=== PATIENT | female | born 1995 | race Caucasian/White ===

== ENCOUNTER → 2021-11-20 | Outpatient (CLI) | payer MEDICAID, SELFPAY ==
[2021-11-22 16:24] LABS: HPV Reflexed? NOT INDICATED
== END | disposition home or self-care (01) ==
LOC: LABSPEC 11-23 13:37
PROVIDERS: Visit Provider Nurse Practitioner Women's Health
DX: Z12.4 Encounter for screening for malignant neoplasm of cervix (principal)
CPT/HCPCS: 88175; G0145

== ENCOUNTER 2022-05-22 08:00 | Outpatient (RCR) | payer MEDICAID, SELFPAY ==
--- NOTE | 2022-05-22 09:00 | BH.COMM ---
Communication Note - Communication with Client Communication Note: Pt completed initial paperwork. No significant changes since pre-admission screening. Completed [facility] with no immediate concerns for safety. Consults with Dr. Winters with plan to IOP to IOP with dx of F33.2
--- NOTE | 2022-05-22 10:05 | BH.SGPN.GN ---
Behaviors/Verbalizations/Mental Status: [] Client alert and oriented, neatly dressed and groomed. Eye contact good. Motor activity appropriate. Speech within normal limits. Affect congruent, mood euthymic. Thoughts linear, logical, no signs of hallucinations or delusions. Client Response/Progress/Benefit: [] Client's first day in program and adjusted well to group environment AEB being an active participant in group discussions. Attentive during psychoeducation on 4 types of conflict styles (Competing, Collaborating, Avoiding, and Accommodating). Worked with group to define conflict and identify how conflict is helpful. With peers identified barriers to addressing or managing conflict which included: wanting to avoid difficult feelings/emotions, lack of communication skills, and cognitive distortions. Client believes they use the accommodating style the most. Client shared this style leads to them feeling like they loss a part of their self and is taking them a long time to rediscover self and navigate built up resentment. Benefited from group due to increase insight and awareness of benefits to conflict, conflict styles, and obstacles to managing conflict. Will continue in IOP to prevent decompensation, gain healthier core beliefs, and increase self-esteem. Narrative Note: []
--- NOTE | 2022-05-22 11:15 | BH.SGPN.GN ---
Behaviors/Verbalizations/Mental Status: [] Client alert and oriented, neatly dressed and groomed. Eye contact good. Motor activity appropriate. Speech within normal limits. Affect congruent, mood euthymic. Thoughts linear, logical, no signs of hallucinations or delusions. Client Response/Progress/Benefit: [] Client engaged in session AEB contributing to discussion and engaging in activity. Client did well to review current conflict style and its impact on mental health. Attentive during discussion on strategies for more effectively managing conflict in personal life. Client participated in activity and did well to be assertive and collaborating. Client given handout on fair fighting rules. Client indicated that she was going to work on not using degrading language and indicated when she gets emotional in conflict, she lets it show with her words. Appeared to benefit from gaining strategies to help client better manage conflict. Will continue IOP tx to increase positive self image, overall functioning, and self-care. Narrative Note: []
--- NOTE | 2022-05-23 11:10 | BH.SGPN.GN ---
Behaviors/Verbalizations/Mental Status: [] Client alert and oriented, casually dressed and groomed. Eye contact good. Motor activity appropriate. Speech within normal limits. Affect congruent, mood euthymic. Thoughts linear, logical, no signs of hallucinations or delusions. Client Response/Progress/Benefit: [] Client responded well to session, engaged in the experiential activity and attentive throughout group processing. Client reported fear of failure has kept client from happiness, experiences, good relationships, and job opportunities. Client completed fear of failure worksheet and was able to identify thoughts and behaviors that reinforce personal fear of failure including lack of boundaries, unhealthy coping skills, and negative self talk. Client participated in small group discussion regarding strategies to overcome fear of failure. Identified wanting to work setting boundaries, self care, and shifting perspective. Appeared to benefit from increased knowledge of strategies to combat fear of failure and gaining self-awareness. Client will continue IOP tx to increase emotional regulations skills and improve overall functoning. Narrative Note: []
--- NOTE | 2022-05-24 09:00 | BH.SGPN.GN ---
Behaviors/Verbalizations/Mental Status: [] Client alert and oriented, casually dressed and groomed. Eye contact good. Motor activity appropriate. Speech within normal limits. Affect congruent, mood euthymic. Thoughts linear, logical, no signs of hallucinations or delusions. Reviewed client?s symptom tracker, no risk for suicidal ideation, plan, or intent as of 05/24/22 Client Response/Progress/Benefit: [] Client responded well to session, offering ideas to peers and providing encouragement. Client reports feeling mellow this morning as client shared that she shared she started reading again which can be difficult for her with focusing and showed up today despite being tired. Client shared stressor of feeling like she has no privacy at her house and indicated ways she is able to get need met with the conditions she has. Client appeared to benefit from reflecting on her growth along with giving other group members encouragement and input. Client will continue IOP tx to regulate emotions, challenge negative thinking patters, and increase use of positive coping skills. Narrative Note: [] Behaviors/Verbalizations/Mental Status: [] Client alert and oriented, casually dressed and groomed. Eye contact good. Motor activity appropriate. Speech within normal limits. Affect congruent, mood euthymic. Thoughts linear, logical, no signs of hallucinations or delusions. Reviewed client?s symptom tracker, no risk for suicidal ideation, plan, or intent as of 05/24/22 Client Response/Progress/Benefit: [] Client responded well to session, offering ideas to peers and providing encouragement. Client reports feeling mellow this morning as client shared that she shared she started reading again which can be difficult for her with focusing and showed up today despite being tired. Client shared stressor of feeling like she has no privacy at her house and indicated ways she is able to get need met with the conditions she has. Client appeared to benefit from reflecting on her growth along with giving other group members encouragement and input. Client will continue IOP tx to regulate emotions, challenge negative thinking patters, and increase use of positive coping skills. Narrative Note: []
== END 2022-05-22 23:59 ==
LOC: BHIOP 08:00
PROVIDERS: Referring Provider Psychiatry & Neurology Psychiatry; Visit Provider Psychiatry & Neurology Psychiatry
DX: F33.2 Major depressive disorder, recurrent severe without psychotic features (principal)
CPT/HCPCS: H2012

== ENCOUNTER 2022-05-23 07:35 | Outpatient (RCR) | payer MEDICAID, SELFPAY ==
--- NOTE | 2022-05-23 09:07 | BH.SGPN.GN ---
Behaviors/Verbalizations/Mental Status: []Eye contact good, casually dressed, motor activity appropriate, speech normal rate and tone, mood dysthymic and anxious, congruent affect, thoughts linear and intact, no evidence of delusions or hallucinations. Reviewed pt's symptom tracker, denies reports of suicidal ideation, plan, or intent as of this date. Future oriented. Client Response/Progress/Benefit: []Pt responded well to session, attentive and willing to process with group. Pt reports feeling empowered this morning. Pt did well to identify current mental health wins which included cooking a healthy meal for herself the previous day. Pt shared an additional win as going to a friends house and practicing some calming/grounding skills. Shared stressor as recent discovery that her cheated on her and that she is not sure of what she wants to do regarding the relationship. Discussed being proud of herself however for coping in healthy ways by validating her emotions and using positive self-talk. Shared looking forward to continuing to learn skills through IOP tx. Appeared to benefit from group?discussion and supportive environment. Recommended continued IOP tx to continue to improve healthy skills, promote mood stability, as well as prevent decompensation. Narrative Note: []
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
[2022-05-23 11:54] VITALS: BP 143/95; PULSE 73
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
--- NOTE | 2022-05-23 12:39 | BH.DR.ITP ---
Initial Treatment Plan Patient Information Visit Information: ADMISSION DATE: EXPECTED LOS: 4-6 weeks Problems/Symptoms Problem #1:: Depression Symptom:: Sadness, hopelessness, worthlessness, biological disruption of sleep, low energy, decreased concentration, guilt, passive thoughts of Problem #2:: Anxiety Symptom:: Worry, rumination, intrusive thoughts
--- NOTE | 2022-05-24 10:10 | BH.SGPN.GN ---
Behaviors/Verbalizations/Mental Status: []Eye contact is good. Motor activity is appropriate. Appearance is casual. Speech is Appropriate. Mood is euthymic. Affect is congruent. Thoughts are linear and logical. No evidence of psychosis. Client Response/Progress/Benefit: []Pt was an active participant in group discussions and activities. Attentive during psychoeducation. Pt engaged during interactive discussion in which the group defined self-care and discussed its benefits. ?Worked with peers in a small group to identify myths related to self-care which included; Self-care is expensive, self-care is selfish, not everyone deserves self-care, self-care means a person is weak, and self-care takes up too much time. Pt participated in small groups where they worked to bust these self-care myths. Pt did well to relate experiential activity to the topic of self-care and its benefit to mental health. Benefited from increased awareness of self-care, its benefits, and the consequences of not utilizing self-care strategies. Pt made a lot of connections in group sharing ?self-care has been a huge part of my life this year.? Will continue in IOP to prevent decompensation, increase healthy coping, and improve functioning.? Narrative Note: []
--- NOTE | 2022-05-24 11:10 | BH.SGPN.GN ---
Behaviors/Verbalizations/Mental Status: []Pt alert and oriented, casually dressed and groomed. Eye contact good. Motor activity appropriate. Speech within normal limits. Affect congruent, mood euthymic. Thoughts linear, logical, no signs of hallucinations or delusions. Client Response/Progress/Benefit: []?Pt engaged participant AEB completing self-assessment worksheet and providing input throughout discussion. Participated in group discussion on the various areas of self-care. Pt completed worksheet identifying current self-care practices and what self-care activities pt wants to start using. Pt selected psychological and emotional self-care to begin practicing more consistently. Pt plans to do this by challenging herself to put time limits on her phone use and begin painting more. Appeared to benefit from completing the self-care evaluation and gaining insights into current self-care practices, as well as identifying areas in which pt ?would like to improve upon. Will continue IOP tx to prevent decompensation, improve daily functioning, and increase healthy coping skills. ? Narrative Note: []
--- NOTE | 2022-05-29 09:05 | BH.SGPN.GN ---
Behaviors/Verbalizations/Mental Status: []Pt alert and oriented, casually dressed and groomed. Eye contact good. Motor activity appropriate. Speech within normal limits. Affect congruent to mood, mood distressed. Thoughts linear, logical, no signs of hallucinations or delusions. Reviewed pt?s symptom tracker, no risk for suicidal ideation, plan, or intent as of 05/29/22 Client Response/Progress/Benefit: []Pt responded well to session, attentive and receptive to feedback. Pt reports feeling unsettled this morning as pt continues to process the loss of her marriage and upcoming dissolution. Pt shared she had an impulse to reach out to her which has been conflicting for pt. Pt identified her mental health wins today as getting to IOP when pt wanted to isolate and trying out a marital arts class for self-care. Pt appeared to benefit from group support and feedback. Pt will continue IOP tx to prevent decompensation, increase distress tolerance skills, and improve daily functioning. Narrative Note: []
--- NOTE | 2022-05-29 10:15 | BH.SGPN.GN ---
Behaviors/Verbalizations/Mental Status: []Pt alert and oriented, neatly dressed and groomed. Eye contact good. Motor activity appropriate. Speech within normal limits. Affect constricted, mood dysthymic and anxious. Thoughts linear, logical, no signs of hallucinations or delusions. Client Response/Progress/Benefit: []Pt was an active participant in group discussions and experiential activity. Attentive during psychoeducation. Pt provided input during discussion on types of social supports which included; family, friends, PCP, mental health providers, support groups, pets, ourselves, community classes, etc. Pt along with the group identified mental health benefits of social support which patient and group identified as; it can help with emotional release, help one to feel heard, validation, distraction, they can encourage us, provide motivation, provide accountability, and boost our mood. Pt also identified personal barriers to obtaining support which included; fear of rejection, being rejected in the past, and expecting her supports to fix her problems. Benefited from increased awareness of mental health benefits of social support and obstacles that prevent one from utilizing support. Will continue in IOP to prevent decompensation, stabilize mood, and increase self-confidence. Narrative Note: []
--- NOTE | 2022-05-29 11:10 | BH.SGPN.GN ---
Behaviors/Verbalizations/Mental Status: []Pt alert and oriented, casually dressed and groomed. Eye contact good. Motor activity appropriate. Speech within normal limits. Affect congruent, mood anxious and dysthymic. Thoughts linear, logical, no signs of hallucinations or delusions. Client Response/Progress/Benefit: []Pt was an active participant throughout AEB contributing to discussion, providing personal examples, and taking notes.? Pt provided input during discussion on the types of support our supports can provide. Pt able to identify current support system and barriers that get in the way of using supports by drawing out their own support net. Pt reported after identifying what type of supports they receive; they gained awareness that they could benefit from more emotional supports. Pt identified steps to achieve this by communicating her support needs with her supports, as well as reflecting on what support would be most help for her on a regular basis. Pt seemed to benefit from identifying the type of support pt needs to work on improving. Pt recommended to continue IOP tx to prevent decompensation, improve mood stability, and continue to promote healthy boundaries. Narrative Note: []
--- NOTE | 2022-05-29 14:28 | BH.MDN_ITS ---
Multi-Disciplinary Note - Note 45-min Individual Time Started:: 12:15 Date: 05/29/22 Purpose of session/treatment goals addressed:: Purpose of session was to gather background information, build rapport, identify current symptoms and stressors, and identify treatment goals for IOP. Additionally, helped provide emotion validation and support regarding pt difficulties in accepting and coping with current stressors. Eye Contact:: Good - tearful at times throughout Motor Activity:: Appropriate Appearance:: Casual Speech:: Appropriate Mood:: Anxious, Depressed Affect:: Congruent Thoughts:: Linear, Logical, Racing Staff Interventions:: psychoeducation on: - radical acceptance, dicchotomous thinking, mindfulness skills, rapport building, strengths perspective, treatment planning, goal setting Client Response:: Client receptive of session, actively engaged and openly discussed current symptoms and stressors. Reported she's seeking treatment due to experiencing recent increased mood instability and difficulties in processing her thoughts related to recently from her of 5 years. Shared that they had initially decided to separate for the month of April and then come together and discuss a plan moving forward; however, her had not been receptive when pt has attempted to schedule a time to meet this month. Shared that in the past week she has learned that he did not remain monogamous to her during the April separation and that they have mutually decided to pursue a dissolution. Shared knowing this is the healthiest decision for both the relationship and her mental health; however struggling with acceptance. Insight that not having closure or answers to all of her ?why? questions is the primary source of her difficulties in accepting and moving forward. Pt identified increased impulse to continue to reach out and demand answers, despite rationally knowing this would not be beneficial and is unlikely to provide the answers she desires. Tearful in discussing this. Shared feeling this means the relationship meant nothing to her ex and that she is not worthy of respect. Receptive of psychoeducation on dichotomous thinking in order to help challenge these thoughts, as well as components of radical acceptance to begin improving overall ability to cope with current stressors. Shared goals for tx as improving her relationship with self, increased acceptance of her current reali ty and improve boundaries, as well as gaining an increased understanding of her mental health dx. Shared she has so far found the IOP program to be helpful and is hopeful being reminded of healthy coping skills can get her back on track. Risks/Concerns:: Denies suicidal ideation, plan, or intent as of this date 05/30/22 Progress Toward Goals/Plan:: Limited progress observed given it's client's second week in tx. Shared feeling more supported and emotionally validated since beginning IOP tx. Expressed increased sense of confidence in continuing to work on her mental health and making decisions regarding pursuing her authentic self. Session focused on building rapport and developing individual treatment goals while in IOP. Client to continue IOP to improve daily functioning, increase healthy coping, and prevent decompensation. Time Stopped:: 13:00
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
--- NOTE | 2022-05-30 09:05 | BH.SGPN.GN ---
Behaviors/Verbalizations/Mental Status: []Eye contact good, casually dressed, motor activity appropriate, speech normal rate and tone, mood dysthymic and anxious, congruent affect, thoughts linear and intact, no evidence of delusions or hallucinations. Reviewed pt's symptom tracker, pt denies suicidal ideation, plan, or intent as of this date. Future oriented. Client Response/Progress/Benefit: []Pt responded well to session, attentive and willing to process with group. Pt reports feeling thankful and mellow this morning. Pt did well to identify wins, which included getting up in time for group this morning despite not wanting to get out of bed. Additional win noted as starting orientation for a new job today. Shared feeling nervous and excited about this. Current stressor noted as ongoing difficulties in navigating her emotions surrounding the potential end of her marriage. Did well to process and identify self-care activities she can engage in that may aid in finding emotion release and comfort. Appeared to benefit from group?discussion and supportive environment. Progress noted in increased acceptance and reported thought challenging. Recommended continued IOP tx to continue to improve consistent use of healthy emotion regulation skills, promote mood stability, as well as prevent decompensation. Narrative Note: []
--- NOTE | 2022-05-30 10:10 | BH.SGPN.GN ---
Behaviors/Verbalizations/Mental Status: []Pt alert and oriented, neatly dressed and groomed. Eye contact good. Motor activity appropriate. Speech within normal limits. Affect congruent, mood dysthymic. Thoughts linear, logical, no signs of hallucinations or delusions. Client Response/Progress/Benefit: []Pt responded well to session, attentive during psychoeducation on SMART goals (Specific, Measurable, Achievable, Realistic, and Time-bound) and engaged in group experiential activity. Participated in an interactive discussion with peers in which they worked together to define what a goal is and the benefits of having goals. Group identified benefits as; gives purpose, ?keeps us moving,? and personal growth. Participated in interactive discussion in which group identified barriers to setting goals and following through with goals. Personal barriers included negative self-talk, making excuses, fear, being too tired, and forgetfulness. Benefited from increased awareness of benefits and strategies for goal-setting. Will continue in IOP to improve mood stability, reduce negative thinking patterns, and improve daily functioning. Narrative Note: []
--- NOTE | 2022-05-30 11:10 | BH.SGPN.GN ---
Behaviors/Verbalizations/Mental Status: []Pt alert and oriented, neatly dressed and groomed. Eye contact good. Motor activity appropriate. Speech within normal limits. Affect congruent, mood depressed. Thoughts linear, logical, no signs of hallucinations or delusions. Client Response/Progress/Benefit: []Pt was engaged during discussion and willing to complete the worksheet challenging them to develop a personal SMART goal. Pt chose the goal of saying a Episcopalian chant to herself every morning and every night. Pt stated this will benefit them by helping pt be consistent, build trust in herself, and find happiness. Pt identified barriers which included: being too tired, negative self-talk, excuses, forgetfulness, and fear. Pt receptive to identifying solutions for these barriers and willing to begin working on this goal. Benefited from this group by developing a short-term SMART goal related to mental health. Will continue IOP tx to improve daily functioning, reduce negative thinking patterns, and increase symptom management skills. Narrative Note: []
--- NOTE | 2022-06-01 10:10 | BH.SGPN.GN ---
Behaviors/Verbalizations/Mental Status: [] Client alert and oriented, casually dressed and groomed. Eye contact good. Motor activity appropriate. Speech within normal limits. Affect congruent, mood euthymic. Thoughts linear, logical, no signs of hallucinations or delusions. Client Response/Progress/Benefit: [] Client responded well to session, contributing to discussion and engaged during the activity. Attentive during discussion on the quote and shared I feel like my emotions really get in the way of me making change happen. Group identified the benefits of change which included: personal growth, improved relationships, more confidence, and progress towards goals. Worked with the group to identify barriers to change, which included: uncomfortable emotions such as anxiety, lack of motivation, others's opinions, and negative thinking. Client participated along with group in activity where they identified and discussed the emotions related to change. Client reported how she connected with how even positive emotions can hinder change. Benefited from increased awareness and understanding of emotions, benefits, and barriers related to change. Will continue IOP tx to continue to combat distortions that reinforce low self-esteem, anxiety, and depression. Narrative Note: []
--- NOTE | 2022-06-01 11:10 | BH.SGPN.GN ---
Behaviors/Verbalizations/Mental Status: [] Client alert and oriented, casually dressed and groomed. Eye contact good. Motor activity appropriate. Speech within normal limits. Affect congruent, mood euthymic. Thoughts linear, logical, no signs of hallucinations or delusions Client Response/Progress/Benefit: [] Client responded well to session, attentive. Did well to process activity and work with group to relate the strategies used to overcome barriers in the activity to managing change in own life. Client identified she would like to focus on controlling how she reacts and minimizing anger responses. Identified being in the preparation stage. Client stated her goal is to practicing deep breathing each day this week. Appeared to benefit from identifying a small goal to work towards. Client will continue IOP tx to prevent decompensation, gain healthy coping skills, and challenge negative thinking patterns. Narrative Note: []
--- NOTE | 2022-06-04 10:00 | BH.SGPN.GN ---
Behaviors/Verbalizations/Mental Status: []Eye contact is good. Motor activity is appropriate. Appearance is casual. Speech is Appropriate. Mood is anxious and euthymic. Affect is congruent. Thoughts are linear and logical. No evidence of psychosis. Client Response/Progress/Benefit: []Pt was an active participant in group discussions and experiential activity. Attentive during psychoeducation on resilience. Participated in interactive discussion with peers on the definition of resilience and where it comes from. Shared beliefs that resilience can be developed and has a genetic component. Group identified that resiliency can be impacted by; past experiences, learned behaviors, and limited or toxic supports. Shared that a rigid mindset and fear of being vulnerable has impeded her resilience in the past. Group also worked together to identify the benefits of being resilient and how it is related to mental health. Able to relate experiential activity of group juggle to topics of resilience. Worked well with peers in small group in which they identified factors that contribute to resilience. Benefited from increased awareness of resilience and the factors that contribute to building resilience. Will continue in IOP to prevent decompensation, improve boundaries and use of healthy coping skills, as well as continue to improve functioning. Narrative Note: []
--- NOTE | 2022-06-04 10:38 | PCM.BH.PN ---
Progress Note Progress Note: In history of Present Illness/Interim History: [] Patient is a 27-year-old but female with a history of anxiety, depression and borderline personality disorder who is seen in follow-up at the [facility] behavioral health IOP program. I last saw the patient 2 weeks ago and at that time we discussed the need to stop using marijuana. The patient states that since increasing the Prozac dose several weeks ago her mood has improved and she is better able to function. She feels she is enjoying the IOP program and learning valuable skills to help her manage her emotions. She denies using any marijuana since last visit but did have a few drinks of alcohol. 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 She gets a stipend for it even though it is a volunteer and she is very excited about this. In addition she is starting a new job at [employer] in a few days and plans to save this money to help her get supplies for her volunteer job. She is continuing to try to set boundaries with her as they remain . She talks with them on the phone about every other day and she sometimes gets confused because they love each other but she knows that he cheated on her and she is uncertain what the future holds for their relationship. She is still depressed but is slowly improving. Sleep and energy levels have improved but sometimes concentration remains somewhat decreased. She denies passive thoughts of , suicidal ideation, homicidal ideation, plan for suicide, thoughts of self-harm, hallucinations or delusions. Current Psychiatric Medications: [] Prozac 40 mg p.o. daily (dose increased 3 weeks ago) Mental Status Examination: [] Patient is a 27-year-old female who is casually dressed and groomed with good hygiene and appears normal for stated age. She is cooperative and pleasant during the interview. She has no psychomotor agitation or retardation and is ambulatory with a normal gait. Eye contact is good and speech is normal rate and rhythm and fluent with no pressure. Mood is moderately depressed to mildly depressed. Affect is constricted. Thought process is goal-directed and organized. Thought content: There is evidence of hope for the future and excitement over her new volunteer job. There is no evidence of passive thoughts of , homicidal ideation, suicidal ideation, plan for suicide, hallucinations or delusions. Reality testing is intact. Intelligence is average. Judgment is intact. Insight is fair to good. Impulsivity is high. Diagnoses: [] 1. Major depressive disorder, recurrent, severe without psychosis 2. Generalized anxiety disorder 3. Borderline personality disorder 4. Primary support and work issues Plan: [] The patient will continue the IOP program at [facility] as the structure, support, education and group therapy will hopefully prevent worsening of the patient's symptoms which might require hospitalization. She felt safe during the interview and if it anytime she does not feel safe she will let us know or go to the emergency room. The patient will continue to follow-up with her outpatient providers and I will see the patient in follow-up while she is in the IOP program.
--- NOTE | 2022-06-04 11:10 | BH.SGPN.GN ---
Behaviors/Verbalizations/Mental Status: []Pt alert and oriented, casually dressed and groomed. Eye contact good. Motor activity appropriate. Speech within normal limits. Affect congruent, mood euthymic. Thoughts linear, logical, no signs of hallucinations or delusions Client Response/Progress/Benefit: []Pt responded well to session AEB completing the resilience worksheet provided. Pt participated in the discussion and worked cooperatively with group to identify strategies to enhance each of the components discussed. Pt reports belief they already use resilience trait of??self-awareness? as pt is attuned to her emotions and reflects on her needs.?Pt stated they would like to continue to develop resilience trait of ?taking decisive action? by continuing to use opposite action. Pt seemed to benefit from discussing strategies for improving personal resilience and identifying resilience traits pt already possesses. Progress noted as pt reports applying coping skills outside of IOP tx.?Will continue IOP tx to improve daily functioning, increase distress tolerance skills, and improve self-confidence.? Narrative Note: []
--- NOTE | 2022-06-05 09:15 | BH.SGPN.GN ---
Behaviors/Verbalizations/Mental Status: []Pt alert and oriented, neatly dressed and groomed. Eye contact good. Motor activity appropriate. Speech within normal limits. Affect congruent, mood centered and aggravated. Thoughts linear, logical, no signs of hallucinations or delusions. Reviewed pt?s symptom tracker, no risk for suicidal ideation, plan, or intent as of 06/05/22 Client Response/Progress/Benefit: []Pt responded well to session, attentive and engaged. Pt reports feeling still, centered, and aggravated this morning as pt has plans to meet up with her soon to be ex- this evening. Pt shared a few days ago she would have told you I would yell and go off on him but pt feels more in control today. Pt shared she hopes to calmly express her feelings and perspective with her ex- and stick to her boundaries. Pt reports she has been using journaling and setting small goals to help pt cope with current stressors. Pt appeared to benefit from reflecting on her application of coping skills. Pt will continue IOP tx to promote mood stability, increase distress tolerance skills, and improve self-confidence. Narrative Note: []
--- NOTE | 2022-06-05 10:15 | BH.SGPN.GN ---
Behaviors/Verbalizations/Mental Status: [] Eye contact is good. Motor activity is appropriate. Appearance is casual. Speech is Appropriate. Mood is euthymic. Affect is full. Thoughts are linear and logical. No evidence of psychosis. Client Response/Progress/Benefit: [] Pt was an active participant in group discussion and experiential activity. Attentive. Group worked together to identify how emotions can impact one's communication skills (isolation, lack of focus, avoidance, yelling, distortions, assumptions, rapid speech, and misinterpretation). Able to see correlations between experiential activity and topic by identifying communicate obstacles during the activity. Problem-solved with group possible calming strategies that were used or could have been used during the activity to improve communication. Increased insight and awareness on how emotions can impact communication. Will continue in IOP to prevent decompensation, increase healthy coping, and stabilize mood. Narrative Note: []
--- NOTE | 2022-06-05 11:15 | BH.SGPN.GN ---
Behaviors/Verbalizations/Mental Status: []Pt alert and oriented, casual appearance. Eye contact good. Motor activity appropriate. Speech within normal limits. Affect congruent, mood euthymic. Thoughts linear, logical, no signs of hallucinations or delusions. Client Response/Progress/Benefit: []Pt engaged in session AEB pt listening attentively to peers, providing input, and taking notes. Attentive during psychoeducation on 4 zones of regulation. Pt able to identify feelings and behaviors she exhibits for each zone.? Pt worked with group to identify coping skills they can use to support themself in each zone. Stated beliefs that she is currently in the green zone, citing feelings of peace, contentment, and calm. Pt reports spending time journaling and continuing to attend treatment will help her to maintain this. Benefited from increased education on zones of regulation or stages of alertness for emotions and healthy coping skills to use for each zone. Pt will IOP tx to increase mood stability, continue to promote healthy boundaries and thought challenging, and prevent decompensation. ? Narrative Note: []
--- NOTE | 2022-06-07 10:10 | BH.SGPN.GN ---
Behaviors/Verbalizations/Mental Status: []Client alert and oriented, casually dressed and groomed. Eye contact good. Motor activity appropriate. Speech within normal limits. Affect congruent, mood euthymic. Thoughts linear, logical, no signs of hallucinations or delusions Client Response/Progress/Benefit: []Client responded well to session AEB providing input, taking notes, and listening attentively to others. Client was engaged throughout group discussion defining fixed mindset and what it can look like. Group identified several aspects of fixed mindset which included; negative outlook, difficulties taking criticism, absolute thinking, and unrealistic expectations of self/others. Group discussed how fixed mindset affects mental health and why we use fixed thoughts. Client participated in experiential activity encouraging clients to find solutions to a seemingly impossible task. Client identified personal fixed thoughts in session which included ?I?m just too fucked up?, ?My marriage failed because of me?, and ?No matter how close I get to someone, I?ll end up ruining it?. Client gained insight to how these fixed thoughts impact self-esteem, create issues in relationships, and keep client stuck in unhealthy cycles. Client appeared to benefit from increased knowledge of fixed mindset and self-awareness of personal fixed thoughts. Will continue IOP treatment to improve mood stability, increase healthy decision making, and to prevent decompensation. Narrative Note: []
--- NOTE | 2022-06-07 11:10 | BH.SGPN.GN ---
Behaviors/Verbalizations/Mental Status: []Pt alert and oriented, casually dressed and groomed. Eye contact good. Motor activity appropriate. Speech within normal limits. Affect constricted, mood depressed. Thoughts linear, logical, no signs of hallucinations or delusions. Client Response/Progress/Benefit: []Pt engaged during activity and discussion AEB providing some input, connecting with peers, as well as taking notes throughout. Pt did well to engage as group worked on identifying characteristics and benefits of adopting a growth mindset. Worked with fellow participants in reframing the example fixed thoughts into growth mindset thoughts. Reframed personal fixed thought of ?no matter how far progress goes I?ll end up where I started? with growth mindset thought of ?baby steps really are the only answer to change.? Benefitted from discussing benefits of growth mindset and brainstorming strategies for prompting growth-mindset. Pt selected ?using self-compassion? as the coping skill pt wants to work on this week. Pt reports consistently utilizing coping skills. Pt will continue IOP tx to improve self-compassion, reduce negative thinking patterns, and improve daily functioning. ? Narrative Note: []
--- NOTE | 2022-06-07 13:57 | BH.MDN ---
Multi-Disciplinary Note - Note 45-min Individual Time Started:: 08:42 Date: 06/07/22 Purpose of session/treatment goals addressed:: To address sx of sadness, guilt, and intrusive ruminating thoughts related to recent separation with . Eye Contact:: Good Motor Activity:: Appropriate Appearance:: Casual Speech:: Appropriate Mood:: Anxious, Dysthymic Affect:: Congruent Thoughts:: Linear, Logical, No evidence of hallucinations/delusions noted Staff Interventions:: thought challenging, CBT techniques, strengths perspective, goal setting Client Response:: Pt responded well to session, open to meeting with therapist. Pt reports she met up with her at a local park ?to get some closure? as they have decided to move forward with a more permanent separation. Pt shared beliefs this will mean dissolution or divorce, but stated that part of her is still struggling with the decision. Insight that the relationship has been unhealthy for some time as neither she or her feel their mental health and relationship needs and boundaries have been respected. Shared they have fundamental differences in expectations for the relationship and each other?s role within it, and she has recently realized they have both been ?waiting and hoping for the other person to change?. Insight that this is harmful to both of their mental health and leaves pt feeling disappointed and disrespected. Despite recognizing this, pt continues to struggle with guilt and sadness, noting she has had intrusive thoughts of ?our story can?t be over?? or ?what if I look back years from now and regret my decision?. Did well to work with therapist to normalize these thoughts and anxieties, as well as challenge them by identifying the reasons pt believes she is making the healthiest choice for herself and her mental health. Reviewed the thought, time, and effort she has put into making the decision as well. Discussed wanting to begin looking at the decision from a perspective of ?healthy vs. unhealthy? instead of ?right vs. wrong?. Able to identify importance of continuing to use her supports, practice grounding skills, and pursue her own hobbies and interests in order to work through these thoughts and emotions as they arise. Shared plans to look into pursuing travel volunteer or conservation opportunities as well, as this is something she has always wanted to do. Risks/Concerns:: Pt denies any suicidal ideations, plan, or intent as of 06/07/22. Future oriented. Progress Toward Goals/Plan:: Pt continues to make progress towards her tx goals AEB pt's report of using healthy coping skills on a more consistent basis, improved self-compassion, self-care, and increased acceptance. Pt continues to struggle with sadness, anger and self-doubt related to her marriage, but pt is aware of this and actively working on it per her report. Pt also reports wanting to look into finding another outpatient counselor as she does not feel she connects well with her current provider. Pt will continue IOP tx to reinforce healthy coping skills, continue to combat distortions, and help pt maintain mood stability. Time Stopped:: 09:35
--- NOTE | 2022-06-13 09:00 | BH.SGPN.GN ---
Behaviors/Verbalizations/Mental Status: []Pt alert and oriented, casually dressed and groomed. Eye contact good. Motor activity appropriate. Speech within normal limits. Affect constricted, mood empowered and irritated. Thoughts linear, logical, no signs of hallucinations or delusions. Reviewed pt?s symptom tracker, no risk for suicidal ideation, plan, or intent as of 06/13/22 Client Response/Progress/Benefit: []Pt responded well to session, attentive and receptive to feedback. Pt reports feeling empowered and irritated this morning as pt shared she is doing a lot of things for herself, but she still gives into urges to contact her ex-. Group normalized this and offered emotional support which pt appeared to benefit from. Pt stated she has been getting ready for her trip to [place] in August which is exciting and scary. Pt reports belief this will be a good journal for pt's independence, confidence, and healing from the relationship. Pt will continue IOP tx to increase distress tolerance skills, reduce negative thinking patterns, and improve mood stability. Narrative Note: []
--- NOTE | 2022-06-13 10:15 | BH.SGPN.GN ---
Behaviors/Verbalizations/Mental Status: [] Eye contact is good. Motor activity is appropriate. Appearance is casual. Speech is Appropriate. Mood is euthymic. Affect is full. Thoughts are linear and logical. No evidence of psychosis. Client Response/Progress/Benefit: [] Pt participated at times during group discussion. This group was very heavy on psychoeducation and pt was attentive AEB by note-taking, providing input when appropriate, and asking questions. Participated in interactive discussion in which peers attempted to define and give examples of automatic negative thoughts and cognitive distortions. Therapist presented and reviewed ten common cognitive distortions (All or Nothing thinking, mental filter, jumping to conclusions, emotional reasoning, labeling, overgeneralization, disqualifying the positives, catastrophizing, shoulds, and personalization). Benefited from increased understanding of cognitive distortions and how they impact automatic negative thoughts. Will continue in IOP prevent decompensation, stabilize mood, and improve functioning. Narrative Note: []
--- NOTE | 2022-06-13 11:10 | BH.SGPN.GN ---
Behaviors/Verbalizations/Mental Status: []Eye contact is good. Motor activity is appropriate. Appearance is casual. Speech is WNL. Mood is euthymic. Affect is congruent. Thoughts are linear and logical. No evidence of psychosis. Client Response/Progress/Benefit: []Pt engaged participant AEB providing input during small group discussion and engaging in activity. Activity involved working with peers to answer questions related to psychoeducation on cognitive distortions and practicing reframing distorted thoughts. Pt collaborated with the group to determine the answers. Identified cognitive distortion struggles with the most as all or nothing thinking. Able to connect negative impact on her mental health distortions has on her. Benefited from rehearsing ways to challenge/reframe cognitive distortions and by gaining increased insight into examples/definitions of 10 most common cognitive distortions. Will continue in IOP to increase healthy coping, challenge negative thinking, and prevent decompensation.
--- NOTE | 2022-06-14 09:05 | BH.SGPN.GN ---
Behaviors/Verbalizations/Mental Status: []Eye contact good, casually dressed, motor activity appropriate, speech normal rate and tone, mood euthymic and agitated, congruent affect, thoughts linear and intact, no evidence of delusions or hallucinations. Reviewed pt's symptom tracker, pt denies suicidal ideation, plan, or intent as of this date. Future oriented. Client Response/Progress/Benefit: []Pt responded well to session, attentive and willing to process with group. Pt reports feeling grateful and empowered this morning. Pt did well to identify wins, which included getting through the stress and anxiety of her first day of work at a new job. Discussed using deep breathing, positive mantras, and grounding to aid in her ability to do so. Additional win noted as using healthy emotion regulation skills to remove herself from potential conflict with her roommates boyfriend. Identified that although she was able to cope in the moment, this is her stressor. Shared feeling as though she is walking on eggshells around him in the home and often feeling uncomfortable. Receptive of supportive feedback and suggestions. Progress noted in increased use of anxiety management skills and progress with emotion regulation. Recommended continued IOP tx to continue to improve consistent use of healthy emotion regulation skills, promote mood stability, as well as prevent decompensation. Narrative Note: []
--- NOTE | 2022-06-14 10:10 | BH.SGPN.GN ---
Behaviors/Verbalizations/Mental Status: [] Eye contact is good. Motor activity is appropriate. Appearance is casual. Speech is Appropriate. Mood is depressed. Affect is congruent. Thoughts are linear and logical. No evidence of psychosis. Client Response/Progress/Benefit: [] Pt was an active participant in group discussion and experiential activity. Attentive during psychoeducation on difference between internal and external coping skills. Therapist discussed possible causes to developing and maintain unhealthy coping skills which can impact mental health. Pt participated in interactive discussion identifying common unhealthy which included; overworking, self-harming, substance use, over-sleeping, over-eating, excessive exercise, social media scrolling, isolation, etc. Able to make connections between experiential activity (folder towers) and importance of having a solid base of internal and external coping skills. Benefited from increased awareness of internal and external coping skills and identifying unhealthy coping skills. Will continue in IOP to increase healthy coping skills, stabilize mood, and improve overall functioning. Narrative Note: []
--- NOTE | 2022-06-14 10:16 | BH.MDN ---
Multi-Disciplinary Note - Note 30-min Individual Time Started:: 08:17 Date: 06/15/22 Purpose of session/treatment goals addressed:: To continue to address and process complex emotions related to recent separation with . Identify several coping skills and support strategies pt can apply to maintain boundaries she has set for herself in limiting communication. Eye Contact:: Good Motor Activity:: Appropriate Appearance:: Casual Speech:: Appropriate Mood:: Anxious, Dysthymic Affect:: Congruent Thoughts:: Linear, Logical, No evidence of hallucinations/delusions noted Staff Interventions:: thought challenging, motivational interviewing, CBT techniques, strengths perspective, goal setting Client Response:: Pt responded well to session, open to meeting with therapist. Shared initially doing well to adhere to personal goal of not contacting her whom pt is from. Shared however that he had reached out to her which opened the door to communication and that she has been struggling to maintain the boundary since. Shared contacted him a few nights ago after having some drinks with friends and feeling guilty and disappointed in herself afterwards. Pt discussed wanting to improve her ability to maintain no contact as she feels this is important for her to continue to improve her confidence, focus on her own mental health, and continue to make progress towards her own goals for herself. Shared she has already deleted his contact information in her phone and deactivated her facebook to create an additional barrier to contacting him; however, pt has his number memorized which she shared has been a problem to maintaining the boundary in the past. Worked with therapist to create a ?Reasons not to contact? list for pt to review when tempted to break her boundary. Pt additionally connected to tracking the number of days she successfully maintains the boundary on a daily tracker to have concrete evidence of her progress towards this goal. Risks/Concerns:: Pt denies any suicidal ideations, plan, or intent as of 06/14/22. Future oriented. Progress Toward Goals/Plan:: Pt continues to make progress towards her tx goals AEB pt's report of improved confidence, consistent application of mindfulness and deep breathing skills in order to manage anxiety and ruminating thoughts, as well as an overall reduction in depression. Pt additionally has been able to successfully obtain employment and had her first day back. Pt continues to struggle with grief and ruminating thoughts associated with the end of her marriage. Noted struggling to focus on herself and not continue to obsess about why her wont take ownership of his mistakes in the marriage. Pt will continue IOP tx to reinforce healthy coping skills, continue to combat distortions and ruminating thoughts on her marriage. As well as maintain mood stability. Time Stopped:: 09:00
--- NOTE | 2022-06-14 11:15 | BH.SGPN.GN ---
Behaviors/Verbalizations/Mental Status: []Pt alert and oriented, neatly dressed and groomed. Eye contact good. Motor activity appropriate. Speech within normal limits. Affect congruent, mood euthymic. Thoughts linear, logical, no signs of hallucinations or delusions. Client Response/Progress/Benefit: [] Pt responded well to session, taking notes and contributing. Group discussed the different categories of coping skills which included distraction, emotional release, grounding, self-love, and thought challenging.? Pt participated in creating a coping skills ?menu? from the five categories of coping skills. Pt's coping skill menu included: reading, holding crystals or stones, swimming, setting boundaries with herself, and using calming skills before thought challenging. Pt reported some of these skills are new and others are skills pt wants to use more often. Appeared to benefit from increasing repertoire of healthy coping skills. Will continue tx to continue using healthy coping skills, decrease negative self-talk, and improve mood stability. Narrative Note: []
--- NOTE | 2022-06-15 13:42 | BH.TPR ---
Treatment Plan Review Date of Admission:: 05/22/22 Date of Treatment Plan Review:: 06/13/22 Admitting Diagnoses:: 1. Major depressive disorder, recurrent, severe without psychosis. 2. Generalized anxiety disorder. 3. Borderline personality disorder Current Diagnoses:: 1. Major depressive disorder, recurrent, severe without psychosis. 2. Generalized anxiety disorder. 3. Borderline personality disorder Patient's Response to Treatment:: Consistent attendance. Engaged in group activities and discussions. Responds well to feedback. Completes all homework and actively works to apply information and skills learned in tx to daily life. Status of Current Problems and Symptoms: According to DSM-5 outcomes scores pt has shown an overall 5% reduction in symptoms since admission. Scores have maintained in the depression domain and pt self-reports this is likely related to recent decision to pursue divorce. Sx have reduced by 33% in anger domain and 20% in the anxiety domain. Also reports a 100% improvement in sx of paranoia. Pt continues to reports several psychosocial stressors involving ongoing divorce and financial stress which impact progress and overall mood. Problem #1 Problem Name:: Depression, hopelessness, guilt Status of Goals:: Obj1- Progress noted. Able to identify several healthy coping skills and reports improvements in consistently applying these skills when overwhelmed or depressed/lonely. Obj2- Pt has not seen any change in depression score on DSM-5 assessment. Will continue to work with pt on engaging in activities she enjoys and avoiding unnecessary triggers for depressive sx. Team Recommendations:: Maintain current plan. Improvement noted and no significant decompensation. Problem #2 Problem Name:: Anxiety, rumination Status of Goals:: Obj 1- Pt is able to identify and reports consistently using several calming and mindfulness skills. Additionally, noted finding deep breathing and positive mantras to be helpful. Reports successfully beginning a new job and using several skills to come with stress in the moment. 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 Though is reporting some improvements in this area. Improvement noted on outcomes scores in the anxiety domain. Team Recommendations:: Maintain current plan.
== END 2022-06-19 23:59 ==
LOC: BHIOP 07:35
PROVIDERS: Referring Provider Psychiatry & Neurology Psychiatry; Visit Provider Psychiatry & Neurology Psychiatry
DX: F33.2 Major depressive disorder, recurrent severe without psychotic features (principal); F41.1 Generalized anxiety disorder; F60.3 Borderline personality disorder; Z79.899 Other long term (current) drug therapy
CPT/HCPCS: 90792; 99213; H2012; H2020; S9480; T1002; 90834; 90837

== ENCOUNTER 2022-06-20 06:46 | Outpatient (RCR) | payer MEDICAID, SELFPAY ==
[2022-06-20 00:32] VITALS: BP 143/95; PULSE 73
--- NOTE | 2022-06-20 09:05 | BH.SGPN.GN ---
Behaviors/Verbalizations/Mental Status: []Pt alert and oriented, neatly dressed and groomed. Eye contact good. Motor activity appropriate. Speech within normal limits. Affect congruent, mood euthymic. Thoughts linear, logical, no signs of hallucinations or delusions. Reviewed pt?s symptom tracker, no risk for suicidal ideation, plan, or intent as of 06/20/22 Client Response/Progress/Benefit: []Pt responded well to session, attentive and engaged. Pt reports feeling thankful and clear-headed this morning. 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 Pt also has been trying to prioritize her mental health and practice more self-compassion which pt feels is benefitting her. Pt's stressor today is that she continues to feel like she is walking on eggshells in her living situation. Pt acknowledged that she needs to have another conversation with her roommates and determine her next step. Pt will continue IOP tx to promote mood stability, increase distress tolerance skills, and reduce negative thinking patterns. Narrative Note: []
--- NOTE | 2022-06-20 10:10 | BH.SGPN.GN ---
Behaviors/Verbalizations/Mental Status: [] Eye contact is good. Motor activity is appropriate. Appearance is casual. Speech is Appropriate. Mood is euthymic. Affect is congruent. Thoughts are linear and logical. No evidence of psychosis or hallucinations. Client Response/Progress/Benefit: [] Pt was an active participant in group discussion and activity. Attentive during psychoeducation. Along with peers was able to identify barriers to taking action. Identified several symptoms and stressors that she feels are holding her back from progress such as negative thoughts, depression, negative past experiences, feeling uncomfortable, and anger outbursts. Client reported these things have kept her from getting as far in life. Benefited from increased self-awareness of obstacles. Will continue in IOP to continue use of healthy coping, challenge distortions, and prevent decompensation.
--- NOTE | 2022-06-20 11:07 | BH.SGPN.GN ---
Behaviors/Verbalizations/Mental Status: []Client alert and oriented, casually dressed and groomed. Eye contact good. Motor activity appropriate. Speech within normal limits. Affect congruent, mood euthymic. Thoughts linear, logical, no signs of hallucinations or delusions. Client Response/Progress/Benefit: []Client responded well to session, taking notes and participating in worksheet discussion. Client connected with the zones of action/change and that making sustainable change comes from stepping out of one?s comfort zone into the learning zone. Client set a goal to gain control over conflict avoidance. Client reported plans to check-in with herself at least once a day to determine if something bothering her needs to be addressed with others. Client identified journaling, communicating with herself and others, as well as reminding herself of the importance of this goal as supports needed to help accomplish this goal. Appeared to benefit from identifying a small goal to benefit mental health. Will continue IOP tx to increase healthy coping, promote mood stability, and prevent decompensation. Narrative Note: []
--- NOTE | 2022-06-21 08:53 | BH.MDN_ITS ---
Multi-Disciplinary Note - Note 45-min Individual Time Started:: 08:20 Date: 06/21/22 Purpose of session/treatment goals addressed:: To work on tx plan goal 1 obj 2 and goal 2 obj 2. Another goal was to discuss ways to increase self-awareness and discuss strategies for increasing self-empowerment. Eye Contact:: Good Motor Activity:: Appropriate Appearance:: Casual Speech:: Appropriate Mood:: Anxious, Dysthymic Affect:: Congruent Thoughts:: Linear, Logical, No evidence of hallucinations/delusions noted Staff Interventions:: thought challenging, motivational interviewing - began discussion on values exploration and motivation to change/live more aut hentically herself, psychoeducation on: - self-advocacy, conflict resolution/communication, strengths perspective, goal setting Client Response:: Pt responded well to session, open to meeting with therapist. Pt reports doing well with goal of not contacting her outside of necessary conversations, such as finances or insurance purposes. Shared feeling proud of herself as her had tried to initiate further after discussing their taxes and pt was able to successfully maintain her boundary. Shared wanting to transition the focus of treatment from coping with her relationship with her soon to be ex-, to improving her relationship with herself. Indicated ?I struggle to focus on me. I don?t want to come across as being too self-absorbed?. Did well to challenge this and identify importance of self-care and values exploration in order to be a healthy friend and support to others. Connected with this and indicated beliefs she has been ?stifling myself? and not authentically expressing herself out of fear of other?s reactions. Noted struggling with ?taking on other?s emotional loads? in the past which has impeded personal growth as well. Connected with discussion on how to be an empathic support without trying to fix or take on other?s problems. Insight into mental health impacts this has had on building a relationship with herself. Provided pt with the Personal Bill of Rights handout as well to begin identify areas in which she feels she struggles to allow herself to practice/advocate for herself. Pt additionally shared plans to begin regular check-ins with herself to ask ?What do I need right now?? in order to continue to promote engaging in mindful self-care. Risks/Concerns:: Pt denies any active suicidal ideations, plan, or intent as of 06/21/22. Pt reports her depression is decreasing. Progress Toward Goals/Plan:: Pt continues to make progress towards her tx goals AEB her consistent attendance and her self-report of reduced depressive and anxious symptoms, specifically in relation to her marital status. Pt continues to have negative thought patterns and struggles with self-actualization due to fear of inconveniencing others or appearing selfish. Pt reports an increase in anxiety symptoms associated with current living environment, but has been taking consistent steps towards addressing this stressor and coping in her environment until she moves in August. Pt receptive to learning about self-advocacy and empowerment. Pt will continue IOP tx to reduce anxiety symptoms, increase self- actualization, and improve daily functioning. Time Stopped:: 09:06
--- NOTE | 2022-06-21 09:00 | BH.SGPN.GN ---
Behaviors/Verbalizations/Mental Status: [] Eye contact is good. Motor activity is appropriate. Appearance is casual. Speech is Appropriate. Mood is euthymic, positive. Affect is congruent. Thoughts are linear and logical. No evidence of psychosis. Reviewed daily check in sheet and no reports of suicidal ideations or intent. Client Response/Progress/Benefit: [] Pt was an active participant in group discussion. Attentive. client reported mental health positive as going out to eat with her some friends from her work. Stated she was able to stay present and enjoy herself during the hangout. Client reported additional positive as going to a nature [place] to sit outside in the sun and took some time to journal. Client reported current stressor as living with someone in which client feels she has to walk on eggshells. Group was supportive and provided encouragement which was beneficial. Will continue in IOP to continue use of healthy coping, challenge distorted thoughts, and prevent decompensation.
--- NOTE | 2022-06-21 10:10 | BH.SGPN.GN ---
Behaviors/Verbalizations/Mental Status: [] Eye contact is good. Motor activity is appropriate. Appearance is casual. Speech is Appropriate. Mood is euthymic. Affect is full. Thoughts are linear and logical. No evidence of psychosis Client Response/Progress/Benefit: [] Pt was an active participant in group discussions. Attentive. Pt participated during interactive discussion on Problem-Solving. Along with peers provided insight on the definition of problem, the importance of problem-solving in one's mental wellness, and consequences of avoiding problems. Attentive AEB by note-taking and asking questions during education on Problem-Solving in the Moment protocol (Ask what the problem is, Brainstorm solutions, choose a solution, Do it, Evaluate). Active and engaged during experiential activity in which pt and peers practiced problem solving strategies. Benefited from increased insight on problem-solving strategies and the benefit of solid problem solving skills on one's mental health. Will continue in IOP to prevent decompensation, stabilize mood, provide support, and increase healthy coping skills. Narrative Note: []
--- NOTE | 2022-06-21 11:05 | BH.SGPN.GN ---
Behaviors/Verbalizations/Mental Status: []Pt alert and oriented, casual dress, hygiene tended to. Eye contact good. Motor activity WNL. Speech appropriate rate and tone. Affect congruent, mood euthymic.? Thoughts linear, logical, no signs of hallucinations or delusions. Client Response/Progress/Benefit: []Pt engaged in session as evidenced by pt listening to others and providing input throughout. Pt completed problem solving example with group and identified a goal they want to work on. Goal identified as: improving comfort in her relationship with herself. Pt?s barriers included: negative thinking/distortions, self-doubt, and fear of the unknown. Pt also identified steps they could take such as journaling daily, affirmations, painting in her room, writing music. Pt seemed to benefit from learning about problem solving method and rehearsing problem-solving skills in the moment. Pt will continue IOP tx to promote mood stability, improve confidence in self and healthy communication with supports, and further reduce negative thinking. Narrative Note: []
--- NOTE | 2022-06-22 09:05 | BH.SGPN.GN ---
Behaviors/Verbalizations/Mental Status: [] Eye contact is good. Motor activity is appropriate. Appearance is casual. Speech is Appropriate. Mood is anxious. Affect is congruent. Thoughts are linear and logical. No evidence of psychosis. Reviewed daily check in sheet and no reports of suicidal ideations or intent. Client Response/Progress/Benefit: [] Pt was an active participant in group discussion. Attentive. Daily symptom tracker notes 04/26 for anxiety and depression. Mental health win is interacting with support. Her stressor is that she is working all weekend. I need to remind myself to take breaks for my self-care. Able to identify the positives to working and aspects of her job which are beneficial. Utilizing skills and managing emotions/stressors. Benefited from group support, encouragement, and feedback. Will continue in IOP to maintain safety, stabilize mood, and increase healthy coping skills. Narrative Note: []
--- NOTE | 2022-06-22 10:20 | BH.SGPN.GN ---
Behaviors/Verbalizations/Mental Status: []Client alert and oriented, casually dressed and groomed. Eye contact good. Motor activity appropriate. Speech within normal limits. Affect congruent, mood anxious and dysthymic. Thoughts linear, logical, no signs of hallucinations or delusions. Client Response/Progress/Benefit: []Client receptive to session AEB contributing to discussion, as well listening attentively to others, and taking notes. Worked with group to brainstorm the positive and negative aspects of stress on physical and mental health. Group did well to identify the benefits of stress as well as the impact of distress on performance, relationships, and mental health. Client identified their personal top stressors as: getting everything ready to move soon, trying to maintain a healthier diet, and worry about the end of IOP. Client reports when the stress overflows client reacts with anger outbursts, but notes improvement with this since being in IOP. Client seemed to benefit from increased awareness of current stressors and impact stress has on mental health. Recommended to continue IOP tx to continue use of healthy coping, challenge negative thinking, and prevent decompensation.
--- NOTE | 2022-06-22 11:15 | BH.SGPN.GN ---
Behaviors/Verbalizations/Mental Status: []Pt alert and oriented, casually dressed and groomed. Eye contact good. Motor activity appropriate. Speech within normal limits. Affect congruent, mood euthymic. Thoughts linear, logical, no signs of hallucinations or delusions. Client Response/Progress/Benefit: []?Pt engaged participant AEB listening attentively to others and contributing to discussion. Attentive during psychoeducation on the 4 A's of Coping with Stress (Avoid, Alter, Adapt, Accept). Participated in experiential activity in which group members had to utilize stress management skills in the moment. Pt was encouraging others and providing direction to group. Pt engaged in review of the 4 A?s and picked wanting to work on avoiding unnecessary stressors and triggers. Benefited from processing in the moment stress management strategies and identifying new ways to cope with stress. Will continue in IOP tx to promote mood stability, increase emotional regulation skills, and further combat distortions. Narrative Note: []
--- NOTE | 2022-06-26 09:05 | BH.SGPN.GN ---
Behaviors/Verbalizations/Mental Status: [] Eye contact is good. Motor activity is appropriate. Appearance is casual. Speech is Appropriate. Mood is euthymic. Affect is congruent. Thoughts are linear and logical. No evidence of psychosis. Reviewed daily check in sheet and no reports of suicidal ideations or intent. Client Response/Progress/Benefit: [] Pt was an active participant in group discussions. Attentive. Daily symptom tracker notes 05/27 for anxiety. Mental health win was I made it through working all weekend. 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 Shared that she used skills learned in IOP to help manage and is proud of herself. She also shared some stressors related to her current roommates and how this was impacting her mental health. Using assertive communication, anger mgmt skills, and calming skills throughout the weekend effectively. Benefited from group support, encouragment, and feedback. Will continue in IOP to prevent decompensation, increase healthy coping, and stabilize mood. Narrative Note: []
--- NOTE | 2022-06-26 10:15 | BH.SGPN.GN ---
Behaviors/Verbalizations/Mental Status: []Pt alert and oriented, casually dressed and groomed. Eye contact good. Motor activity appropriate. Speech within normal limits. Affect congruent, mood agitated. Thoughts linear, logical, no signs of hallucinations or delusions. Client Response/Progress/Benefit: []Pt was an active participant during interactive group discussions. Attentive during psychoeducation on the six types of boundaries. Pt along with peers contributed to interactive discussion on defining what a boundary is ?and group identified challenges to setting boundaries which included; lack of confidence, lack of self-worth, fear of losing friends, and guilt. Group identified the benefits to setting boundaries and pt identified personal benefits of keeping herself safe and getting out of a toxic relationship. Pt benefited from increased awareness and insight on the importance/benefit to setting health boundaries. Will continue in IOP to reinforce healthy coping skills, increase self-compassion, and further improve mood stability. Narrative Note: []
--- NOTE | 2022-06-26 11:10 | BH.SGPN.GN ---
Behaviors/Verbalizations/Mental Status: []Client alert and oriented, casually dressed and groomed. Eye contact good. Motor activity appropriate. Speech within normal limits. Affect congruent, mood euthymic. Thoughts linear, logical, no signs of hallucinations or delusions. Client Response/Progress/Benefit: []Pt responded well to session AEB listening attentively to peers and providing input. Pt attentive during psychoeducation on the different boundary styles. Pt stated she initially didn't believe she should engage in self-care, but now believes it's important for her mental health. Pt reported she now realizes it's important to set boundaries to give herself time to engage in self-care. Able to recognize importance of having healthier boundaries. Pt was given a handout on strategies for healthy boundary setting. Appeared to benefit from increasing insight to boundary setting and the impacts on mental health. Seemed to benefit from increased awareness of boundary styles and strategies to improve setting boundaries. Will continue IOP tx to decrease negative thinking, increase mood stability, and prevent decompensation.
--- NOTE | 2022-06-27 10:34 | BH.COMM ---
Communication Note - Communication with Client Communication Note: No call/ no show; pt was scheduled to meet with program psychiatrist.
--- NOTE | 2022-06-28 10:10 | BH.SGPN.GN ---
Behaviors/Verbalizations/Mental Status: []Client alert and oriented, casually dressed and groomed. Eye contact fair. Motor activity appropriate. Speech within normal limits. Affect constricted, mood dysthymic. Thoughts linear, logical, no signs of hallucinations or delusions. Client Response/Progress/Benefit: []Client was an active participant in group discussions and activity. Attentive during psychoeducation. Client along with peers were able to identify several negatives on the picture given to the group. Client and peers also identified positives in the picture and made the connection that finding positives is much more difficult. Interactive discussion on the definition of perspective, how perspective is formed, and why perspective is important in treatment. Client along with peers also identified that perspective can either motivate and encourage treatment or be a barrier to receiving help. Client shared she is trying to adopt a more hopeful/positive perspective currently but struggles at times with lack of awareness on how her emotions impact her perspective. Shared a hopeful perspective would aid in improving her confidence and ability to continue to seek personal growth. Recognizes when her perspective is negative she tends to shut down and sleep to avoid. Will continue in IOP to stabilize moods, increase consistent use of healthy coping, and prevent decompensation. Narrative Note: []
--- NOTE | 2022-06-28 14:58 | BH.MDN ---
Multi-Disciplinary Note - Note 60-min Individual Time Started:: 11:15 Date: 06/28/22 Purpose of session/treatment goals addressed:: To work on goal #1 of pt's tx plan. Another goal was to process recent maladaptive coping responses to current stressors and identify healthier alternatives. Eye Contact:: Good Motor Activity:: Appropriate Appearance:: Casual Speech:: Appropriate Mood:: Anxious, Depressed Affect:: Congruent Thoughts:: Linear, Logical, Other - ruminating on current stressors; several distorted thoughts patterns present, No evidence of hallucinations/delusions noted Staff Interventions:: thought challenging, motivational interviewing, CBT techniques - behavior chain analysis, strengths perspective, goal setting - created a daily heathy coping tracker Client Response:: Pt arrived to group late and reported difficulties focusing on the topic at hand. Requested meeting with therapist prior to end of group due to struggling with significant rumination impeding engagement. Pt shared she has been struggling with managing several new stressors in the past week and feels she is beginning to decompensate as a result. Discussed a recent incident with one of her roommates causing pt to feel uncomfortable in her current living environment. Expressed struggling with increased alcohol consumption and not consistently taking her medications as a result. Insight that this incident may have been a trauma trigger for pt, disclosed feelings of anger and embarrassment at herself for not advocating for herself and more firmly asserting her boundaries. Expressed a desire to find alternative housing but is uncertain she can afford to do so. Fears that if she were to pay more for housing someplace else, she would no longer be able to leave for [employer] in August. Pt Receptive of and reported connecting to discussion on common responses to trauma triggers and psychoeducation on Fight, Flight, and Freeze responses. Identified that although she would ideally change her living arrangements, she can safely remain in the environment while considering all her potential options. Discussed some of these options, and pt reported plans to complete a decisional balance and discuss these with her other roommates and supports before making a decision. Connected with discussion on maladaptive coping behaviors, such as drinking to seek stress relief, and completed a behavior chain analysis on the past effects of maladaptive coping on her mental health. Noted not wanting to ?go back down the same old patterns of behavior? and described a strong desire to prevent from allowing this setback to become an unhealthy ?downward spiral?. Pt and therapist reviewed adaptive coping skills she can engage in to find stress relief as she navigates her current housing stressors and ongoing dissolution. Pt identified consistent use of medication, journaling, and checking-in with herself as most important. Created a daily coping tracker to help pt with holding herself accountable. Pt shared plans to remind herself of the consequences of maladaptive coping when experiencing urges to engage in these behaviors. Risks/Concerns:: Pt denies any suicidal ideations, plan, or intent as of 06/28/22. Pt is future oriented. Does report recent influx in drinking behaviors and higher risk taking as a result. Denies beliefs these are currently porblematic in nature but is fearful if she continues engaging in drinking behaviors this could result in problematic behaviors. Willing to safey plan for maintaining sobriety. Progress Toward Goals/Plan:: Some regression related to recent trauma trigger resulting in pt engaging in increased unhealthy coping and potentially dangerous environments as a result. Pt reports insight and remorse for her impulsive and maladaptive coping. Shared she does not want to return to old onhealthy coping and was receptive of creating a plan for maintaining sobriety and preventing ongoing unhealthy decision making. Pt noted increased anxiety, anger, and depression as a result of these stressors and her behaviors following. Recommended ocntinued IOP tx to prevent further regression, promote healthier stress management, and improve overall mood stability. Time Stopped:: 12:21
--- NOTE | 2022-07-03 09:05 | BH.SGPN.GN ---
Behaviors/Verbalizations/Mental Status: [] Eye contact is good. Motor activity is appropriate. Appearance is casual. Speech is Appropriate. Mood is depressed/irritable. Affect is congruent. Thoughts are linear and logical. No evidence of psychosis. Reviewed daily check in sheet and no reports of suicidal ideations or intent. Client Response/Progress/Benefit: [] Pt was an active participant in group discussion. Attentive. Daily symptom tracker notes 2/5 for depression and anxiety. Emotion for today is disheartened, discouraged, and disappointed. Mental health win involed completing self-care yesterday. Shared how this was beneficial to her mental health. Pt reports feeling overwhelmed and stressed due to several recent psychosocial stressors I'm just not sure what to do. Stressors include housing, relationship, and her future. She elaborate on her stressors and was receptive to feedback and support from peers which was beneficial. Utilized the group to vent and work through possible strategies. Will continue in IOP to prevent decompensation, stablize mood, and increase healthy coping skills. Narrative Note: []
--- NOTE | 2022-07-03 10:14 | BH.SGPN.GN ---
Behaviors/Verbalizations/Mental Status: []Pt alert and oriented, neatly dressed and groomed. Eye contact fair to good. Motor activity appropriate. Speech within normal limits. Affect congruent, mood dysthymic, agitated. Thoughts linear, logical, no signs of hallucinations or delusions. Client Response/Progress/Benefit: []Pt receptive of session though appearing distracted by own thoughts throughout, somewhat attentive during psychoeducation on SMART goals (Specific, Measurable, Achievable, Realistic, and Time-bound) and engaged in group experiential activity. Participated in an interactive discussion with peers in which they worked together to define what a goal is and the benefits of having goals. Group identified benefits as; gives purpose, improves motivation, improves relationships, and personal growth. Participated in interactive discussion in which group identified barriers to setting goals and following through with goals. Personal barriers included negative unrealistic expectations, losing focus, and lack of follow-through. Benefited from increased awareness of benefits and strategies for goal-setting. Will continue in IOP to improve mood stability, improve self-care, and improve daily functioning. Narrative Note: []
--- NOTE | 2022-07-03 11:10 | BH.SGPN.GN ---
Behaviors/Verbalizations/Mental Status: []Pt alert and oriented, casually dressed, appropriately groomed. Eye contact good. Motor activity appropriate. Speech within normal limits. Affect congruent, mood euthymic. Thoughts linear, logical, no signs of hallucinations or delusions. Client Response/Progress/Benefit: []Pt was engaged during discussion and willing to complete the worksheet challenging them to develop a personal SMART goal. Pt chose the goal of listening to a sleep meditation for at least one minute every night before bed. Pt stated this will benefit her by improving sleep and improving ability to be mindful. Pt identified barriers which included excuses, negative thinking, and forgetfulness. Identified opposite action, setting an alarm, and challenging negative thinking as potential solutions to her barriers. Pt receptive to identifying solutions for these barriers and willing to begin working on this goal. Benefited from this group by developing a short-term SMART goal related to mental health. Will continue IOP to increase healthy coping, challenge negative thinking, and prevent decompensation.
--- NOTE | 2022-07-03 14:52 | BH.MDN ---
Multi-Disciplinary Note - Note 45-min Individual Time Started:: 11:57 Date: 07/03/22 Purpose of session/treatment goals addressed:: To work on goal #1 & #2 of pt's tx plan. Another goal was to process current stressors and begin discharge planning. Eye Contact:: Good Motor Activity:: Appropriate Appearance:: Casual Speech:: Appropriate Mood:: Anxious, Dysthymic Affect:: Congruent Thoughts:: Linear, Logical, No evidence of hallucinations/delusions noted Staff Interventions:: thought challenging, motivational interviewing, discharge planning, strengths perspective, goal setting, other - cost/benefit analysis Client Response:: Pt responded well to session, open to meeting with therapist. Pt shared she has had multiple mental health stressors since last session. Discussed ongoing uncertainties regarding housing as a stressor, noting she has decided moving out would be the best option. Reports deciding to put joining the [employer] in [place] on hold for the time being in order to save money and secure more stable housing. Noted wanting to ensure she has a comfortable and safe environment to return to after her trip to [place]. Expressed struggling with determining whether she should pursue living on her own or with two of her other roommates who are also looking to move. Pt and therapist spent much of the session discussion pt?s mental health needs and completing a cost/benefit analysis of her options with these needs in mind. Reports beliefs she needs the supportive environment and accountability that comes with having roommates, but would benefit from having a distinct place within the environment, outside of her room, that she feels is her ?own space? to reflect and ground herself. Noted having time to plan this out and advocate for these needs as they look for alternative housing options. Additionally, discussed ways to make the current home environment more tolerable until able to move. Pt expressed another stressor as moving forward with pursuing the dissolution with her , disclosing she has recently reached back out to him. Upon further discussion, pt noted beliefs she is using interacting with him as a distraction from her housing stressors. Identified not really wanting to rekindle the relationship and provided insight that continuing to talk with him, outside of what is necessary, may further blur the boundaries and create more emotional stress in pursuing the dissolution. Receptive of discussion on self-compassion and importance of maintaining firm boundaries, especially when it is emotionally difficult, to prevent feeling disappointed in herself/the situation later. Risks/Concerns:: Pt denies any suicidal ideations, plan, or intent as of 07/03/22. Pt is future oriented. Progress Toward Goals/Plan:: Pt is responding well to tx AEB pt's consistent engagement in group and application of skills discussed in both group and individual sessions. Pt reports she is utilizing coping skills outside of IOP tx and is finding benefit, shared challenging herself not to drink since last session. Expressed feeling accomplished and more capable of coping with her emotions in rational ways as a result. Pt's stressors have not changed since last week, but pt is gaining insight and is feeling more confident in making a decision on housing in the near future. Reports increased comfort in herself and her confidence to make independent decisions which is progress. Reduced self-criticism. Pt endorses ongoing rumination and anxiety related to current stressors but feels she is managing this in healthier ways. Pt will continue IOP tx for one more week to prevent decompensation, improve consistent use of healthy distress tolerance skills, and maintain gains. Time Stopped:: 12:45
--- NOTE | 2022-07-11 10:10 | BH.SGPN.GN ---
Behaviors/Verbalizations/Mental Status: []Eye contact is good. Motor activity is appropriate. Appearance is casual. Speech is Appropriate. Mood is anxious and euthymic. Affect is congruent. Thoughts are linear and logical. No evidence of psychosis. Client Response/Progress/Benefit: []Pt was an active participant in group discussions and experiential activity. Attentive during psychoeducation on resilience. Participated in interactive discussion with peers on the definition of resilience and where it comes from. Shared that resilience allows us to better juggle multiple responsibilities and know when to ask for assistance in doing so as well. Group identified that resiliency can be impacted by; past experiences, learned behaviors, and mental health state. Group also worked together to identify the benefits of being resilient and how it is related to mental health. Able to relate experiential activity of group juggle to topics of resilience. Worked well with peers in small group in which they identified factors that contribute to resilience. Benefited from increased awareness of resilience and the factors that contribute to building resilience. Will d/c from IOP tx given progress made and continue in outpatient counseling to promote gains, further improve healthy decision making, as well as continue to improve mood stability. Narrative Note: [] Behaviors/Verbalizations/Mental Status: []Eye contact is good. Motor activity is appropriate. Appearance is casual. Speech is Appropriate. Mood is anxious and euthymic. Affect is congruent. Thoughts are linear and logical. No evidence of psychosis. Client Response/Progress/Benefit: []Pt was an active participant in group discussions and experiential activity. Attentive during psychoeducation on resilience. Participated in interactive discussion with peers on the definition of resilience and where it comes from. Shared that resilience allows us to better juggle multiple responsibilities and know when to ask for assistance in doing so as well. Group identified that resiliency can be impacted by; past experiences, learned behaviors, and mental health state. Group also worked together to identify the benefits of being resilient and how it is related to mental health. Able to relate experiential activity of group juggle to topics of resilience. Worked well with peers in small group in which they identified factors that contribute to resilience. Benefited from increased awareness of resilience and the factors that contribute to building resilience. Will d/c from IOP tx given progress made and continue in outpatient counseling to promote gains, further improve healthy decision making, as well as continue to improve mood stability. Narrative Note: []
--- NOTE | 2022-07-11 11:10 | BH.SGPN.GN ---
Behaviors/Verbalizations/Mental Status: []Pt alert and oriented, neatly dressed and groomed. Eye contact good. Motor activity appropriate. Speech within normal limits. Affect congruent, mood euthymic and anxious. Thoughts linear, logical, no signs of hallucinations or delusions Client Response/Progress/Benefit: []Pt responded well to session AEB completing the resilience worksheet provided. Reports belief they already use resilience traits of??keeping things in perspective, making connections, and accepting that change is a part of living.? Pt shared these traits will help pt overcome current stressors. Pt stated they would like to continue to develop resilience trait of ?taking care of yourself? which pt wants to do by maintaining daily check-ins with herself. Pt seemed to benefit from discussing strategies for improving personal resilience and identifying resilience traits pt already possesses. Pt has made progress in mood stability and reports a reduction of overall DSM-5 symptoms. Will discharge from IOP tx today as pt no longer meets criteria for IOP level of care. Narrative Note: []
--- NOTE | 2022-07-11 12:32 | PCM.BH.PN ---
Progress Note Progress Note: And history of Present Illness/Interim History: The patient is a 27-year-old female with a history of anxiety, depression and borderline personality disorder who was last seen 3 weeks ago. The patient feels that she has been up and down at times but feels she has made much positive progress overall since starting the IOP program. She has been a little bit sporadic in her attendance at times. She feels she has greatly benefited from the program and that it has given her tools to use to help deal with her from her . She has come to the decision that she and her are going to get a dissolution and she feels okay with this decision. She is currently working 2 jobs and feels she could not have done as well she did without the support and education the [facility] provided. Patient denies any marijuana use since last visit. She has overall decreased her alcohol use and is now drinking less than 1 glass of wine per week. Her energy level is good and her sleep is good at 8 hours a night. She denies passive thoughts of , suicidal ideation, homicidal ideation, hallucinations or delusions. She is able to function well at work and at home. The patient remains compliant with her Prozac and seeing her counselor at [place] [id number] which is an improvement for her. Current Psychiatric Medications: [] Prozac 40 mg p.o. daily (dose increased 5 weeks ago) Mental Status Examination: [] The patient is a 27-year-old female who appears normal for stated age and is casually dressed and groomed with good hygiene. She is ambulatory with a normal gait and has no psychomotor agitation or retardation. She is cooperative and pleasant during the interview. Eye contact is good and speech is normal rate and rhythm and fluent with no pressure. Thought processes goal-directed and organized. Thought content: There is no evidence of passive thoughts of , suicidal ideation, homicidal ideation, hallucinations or delusions. Patient is hopeful for the future. Reality testing is intact. Judgment is intact. Insight is fair to good. Impulsivity is moderate. Diagnoses: [] 1. Major depressive disorder, recurrent, severe without psychosis (resolving) 2. Generalized anxiety disorder 3. Borderline personality disorder 4. Primary support issues Plan: [] The patient will be discharged from the IOP program today as she has improved greatly in her symptomatology and her insight and coping skills since starting the program. No medication changes were made today and she will continue on the current medication regimen. She will continue to follow-up with her outpatient medical and psychiatric providers. She felt safe during the interview and if it anytime she does not feel safe she will let us know or go to the emergency room.
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
== END 2022-07-11 12:19 | disposition home or self-care (01) ==
LOC: BHIOP 06:46
PROVIDERS: Referring Provider Psychiatry & Neurology Psychiatry; Visit Provider Psychiatry & Neurology Psychiatry
DX: F33.2 Major depressive disorder, recurrent severe without psychotic features (principal); F41.1 Generalized anxiety disorder; F60.3 Borderline personality disorder; Z79.899 Other long term (current) drug therapy
CPT/HCPCS: 99213; H2012; H2020; S9480; 90834; 90837